=== PATIENT | female | born 1955 | race Caucasian/White ===

== ENCOUNTER 2016-05-20 18:22 | Emergency (ER) | payer BC ==
--- NOTE | 2016-05-20 18:28 | UCPHY ---
H & P Patient Type: Established HPI/ROS: HPI CHIEF COMPLAINT: Mechanical fall HISTORY OF PRESENT ILLNESS: This patient is very pleasant 58-year-old female, significant past medical history for irregular heartbeat, diabetes, presents to the urgent care she took a mechanical trip and [place] [employer]. Patient states that she tripped and fell landing on her knees and had a head strike that hit concrete no LOC, no nausea vomiting no visual disturbance she does complain of a left-sided temporal headache. Denies neck pain, chest pain, shortness of breath. Upon arrival here in the Urgent Care she arrived by private vehicle she is GCS 15, alert or x4, she does have abrasions noted to both bilateral knees, and left temporal region no laceration present no hematoma. patient tells me her tetanus shot is up-to-date. Past Medical History: Diabetes, irregular heartbeat, hyperlipidemia Past Surgical History: hysterectomy Social History: denies daily drugs alcohol tobacco products Family History: noncontributory ROS REVIEW OF SYSTEMS: A comprehensive 10 point review of systems is otherwise negative aside from elements mentioned in the history of present illness. Exam Constitutional triage nursing summary reviewed, vital signs reviewed, awake/ alert. Eyes normal conjunctivae and sclera, EOMI, PERRLA. HENT head/neck: Abrasion to the left temporal region, no laceration, no hematoma, otherwise atraumatic, neck no midline cervical spine pain, no step- offs, no crepitus normal inspection, atraumatic, moist mucus membranes, no epistaxis, neck supple/ no meningismus, no raccoon eyes. Respiratory clear to auscultation bilaterally, normal breath sounds, no respiratory distress, no wheezing. Cardiovascular rate normal, regular rhythm, no murmur, no edema, distal pulses normal. Gastrointestinal soft, non-tender, no rebound, no guarding, normal bowel sounds, no distension, no pulsatile mass. Genitourinary no CVA tenderness. Musculoskeletal full range of motion of knees bilaterally, no crepitus, no significant swelling, able to walk and ambulate appropriately, no wrist pain, no midline vertebral tenderness, full range of motion, no calf swelling, no tenderness of extremities, no meningismus, good pulses, neurovascularly intact. Skin abrasion left temporal region, abrasion bilateral knees, pink, warm, & dry , no rash, skin atraumatic. Neurologic awake, alert and oriented x 3, AAOx3, moves all 4 extremities equally, motor intact, sensory intact, CN II-XII intact, normal cerebellar, normal vision, normal speech. Psychiatric normal mood/affect. Heme/Lymph/Immune no lymphadenopathy. Differential Diagnosis: includes but is not limited to in a particular order, mechanical trip and fall leading to multiple skin abrasions, contusions, hematoma, closed head injury, intracranial bleed, subdural, traumatic subarachnoid, epidural hemorrhage, skull fracture, soft tissue injury, abrasions Medical Decision Making: This patient's wounds will be cleaned and bandage, she will need a CT scan of her head without contrast rule out significant trauma given head strike against concrete and on daily aspirin. However here in the Urgent Care she appears well nontoxic no acute distress, he is a GCS 15, normal neurological exam unlikely to have intracranial bleed. Re-evaluation: CT scan of the head without IV contrast. The results of the study are negative for acute traumatic injury specifically no bleed or skull fracture The study was read by Dr. Lux. I viewed the images myself on the PACS system. 1915: patient is resting comfortably here in the urgent care no acute distress , not vomiting normal neurological exam CT scan is negative for any acute traumatic injury. Patient given ibuprofen she does understand to return to the urgent care or emergency room if she develops any worsening symptoms questions or concerns including worsening headache, vomiting. Source: Patient - Personal History Tetanus Vaccine Date: 2010 - Medical/Surgical History Hx Diabetes: Yes Hx Cardiac Disease: No Hx Renal Disease: No Hx Cirrhosis: No Hx Alcoholism: No Hx HIV/AIDS: No Hx Splenectomy or Spleen Trauma: No Other PMH: gluten free diet-gi issues. HTN. DIABETES-type 2. TONSIECTOMY. HYST, BLADDER LIFT/VAG SLING - Family History Significant Family History: No pertinent family hx - Social History Smoking Status: Never smoked Constitutional: Initial Vital Signs Temperature (C) 36.4 C 05/20/16 18:28 Heart Rate 62 05/20/16 18:28 Respiratory Rate 16 05/20/16 18:28 Blood Pressure 113/65 05/20/16 18:28 O2 Sat (%) 97 05/20/16 18:28 O2 Delivery Mode Room Air Allergies/Adverse Reactions: ibuprofen Allergy (Verified 05/30/14 16:23) Home Medications: Medication Instructions Recorded Lisinopril 01/08/14 Metformin HCl 01/08/14 PREMARIN 01/08/14 Sertraline HCl 01/08/14 Crestor 05/20/16 Departure - Departure Disposition: Home, Routine, Self-Care Clinical Impression: Abrasion Fall Qualifiers: Encounter type: initial encounter Qualifier Code: (W19.XXXA) Unspecified fall, initial encounter Head injury Qualifiers: Encounter type: initial encounter Qualifier Code: (S09.90XA) Unspecified injury of head, initial encounter Condition: Good Instructions: Fall Prevention (ED), Head Injury (ED), Concussion (ED) Referrals: IN STATE,. [Primary Care Provider] - As per Instructions - PQRS PQRS Measurement: n/a
[2016-05-20 18:32] VITALS: BP 113/65; PULSE 62; RESP 16; TEMP 97.5; O2SAT 97
[2016-05-20] MEDS ORDERED: ACETAMINOPHEN 325 MG TAB PO ONE (19:16)
--- NOTE | 2016-05-20 19:19 | CT ---
CT Scan of the Head (Without Contrast) Clinical Indications: 60-year-old female who is on aspirin and sustained a fall and a head injury wit h a small abrasion over the left temporal region. Rule out acute intracranial abnormality. Technique: Axial CT images were acquired from the foramen magnum through the skull vertex, without i ntravenous contrast. Soft tissue, subdural, and bone windows were reviewed on the computer workstati on. Images were reformatted at 5.00 and 1.25 mm increments, and are reformatted in sagittal and licha nal planes. DFOV is 25.0 cm. Dose reduction techniques were utilized. Comparison Study: None. Findings: There are no mass lesions identified, and there is no evidence of an acute or subacute intr acranial hemorrhage, or an acute infarct. The ventricles and subarachnoid spaces are normal in size for this age group. The bone windows reveal no sign of a fracture. The visualized paranasal sinuses and mastoid air cells are free of fluid. The craniocervical junction and orbits are unremarkable. 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 There is also a partially empty sell a turcica with CSF attenuation along the posterior margin of the pituitary gland. There is mural calc ification of the cavernous carotid arteries, and the left vertebral artery. If there is continuing cl inical concern regarding the patient's symptoms, MR imaging could be considered, if otherwise not con traindicated. Impression: There is no acute intracranial abnormality identified on this unenhanced CT scan. Results were conveyed to Dr. Brock Arreola. A test result has been communicated to a licensed care provider and documented in [employer], 7:13:57 PM , 05/20/2016, [employer] Message ID [id number].
== END 2016-05-20 19:49 | disposition home or self-care (01) ==
LOC: CED 18:22
DX: S09.90XA Unspecified injury of head, initial encounter (principal); E11.9 Type 2 diabetes mellitus without complications; E78.5 Hyperlipidemia, unspecified; I10 Essential (primary) hypertension; I49.9 Cardiac arrhythmia, unspecified; W19.XXXA Unspecified fall, initial encounter
CPT/HCPCS: 70450-PO; 99215-PO; G0463-PO